=== PATIENT | female | born 1965 | race Caucasian/White ===

== ENCOUNTER 2017-11-04 13:18 | Outpatient (CLI) | payer BC | END 2017-11-04 13:19 | disposition home or self-care (01) | LOC: BICMRI 13:18 | PROVIDERS: ATTEND Internal Medicine Rheumatology | DX: M47.817 Spondylosis without myelopathy or radiculopathy, lumbosacral region (principal); M51.36 Other intervertebral disc degeneration, lumbar region | CPT/HCPCS: 72148 ==

== ENCOUNTER 2018-05-05 08:15 | Outpatient (CLI) | payer BC ==
[2018-05-05] MEDS ORDERED: ISOVUE-370 76%-LOCM 1 ML ONE (13:07)
== END 2018-05-05 08:16 | disposition home or self-care (01) ==
LOC: BICCT 08:15
PROVIDERS: ATTEND Internal Medicine Rheumatology
DX: R10.9 Unspecified abdominal pain (principal); K86.89 Other specified diseases of pancreas; K83.8 Other specified diseases of biliary tract
CPT/HCPCS: 74170

== ENCOUNTER 2018-06-09 10:49 | Outpatient (CLI) | payer BC ==
--- NOTE | 2018-06-09 14:56 | MRI ---
MRI ABDOMEN WITH AND WITHOUT IV CONTRAST: INDICATIONS: History of pancreatic cyst. COMPARISON: CT abdomen with and without contrast, dated 05/05/2018, from [facility] [place]. TECHNIQUE: Multiplanar, multisequence MR images were obtained of the abdomen utilizing MRCP protocol, and 18 mL of MultiHance was utilized for the exam. 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 The main pancreatic duct is slightly dilated, measuring up to 3 mm within the body. This raises suspici on for main duct involvement. No additional cystic lesion is evident within the remaining aspect of the pancreas. There is dilatation of the common bile duct, measuring 1.5 cm. There is mild intrahepatic biliary du ctal dilatation. A small accessory pancreatic duct is seen involving the pancreatic head and entering below the ampull a of Vater. No focal renal lesion is evident. The adrenal glands and spleen appear within normal limits. No pathologically enlarged lymph nodes are evident. No bone marrow signal abnormality is evident. There is scattered degenerative change. IMPRESSION: 1. 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 There is some m ild dilatation of the adjacent main pancreatic duct, suspicious for main duct involvement. Endoscope retrograde cholangiopancreatography is recommended. 2. Dilatation of the common bile duct is nonspecific and may be related to post cholecystectomy stat e. POS: [facility]
== END 2018-06-09 10:50 | disposition home or self-care (01) ==
LOC: MRI 10:49
PROVIDERS: ATTEND Internal Medicine
DX: K86.2 Cyst of pancreas (principal); K83.8 Other specified diseases of biliary tract
CPT/HCPCS: 74183